=== PATIENT | male | born 1990 | race Caucasian/White ===

== ENCOUNTER 2018-05-11 10:52 | Day surgery (SDC) | payer OTHER ==
[~2018-05-11 10:52] MED LIST: DEXAMETHASONE 2 MG TAB PO; GABAPENTIN 300 MG CAP PO; TRANEXAMIC ACID 1,000 MG in DEXTROSE 5% 100 ML IVPB; traMADol 50 MG TAB PO
[2018-05-11] MEDS ORDERED: LACTATED RINGER'S 1,000 ML IV (13:00)
[2018-05-11] MEDS ORDERED: CEFAZOLIN 1 GM INJ (13:13)
[2018-05-11] MEDS ORDERED: PROPOFOL 20 ML (13:13)
[2018-05-11] MEDS ORDERED: FENTAnyl 50 MCG/ML VIAL ×2 (13:13)
[2018-05-11] MEDS ORDERED: ROPIVACAINE 0.5 % 30 ML VIAL (13:13)
[2018-05-11] MEDS ORDERED: MIDAZOLAM 1 MG/ML 2 ML INJ (13:13)
[2018-05-11] MEDS ORDERED: ROCURONIUM 50 MG INJ (13:13)
[2018-05-11] MEDS ORDERED: OXYCODONE/ACETAMINOPHEN (5/325) TAB PO ×2 (14:00)
[2018-05-11] MEDS ORDERED: EPHEDrine SULFATE 50 MG/5 ML SYG IV (14:00)
[2018-05-11] MEDS ORDERED: HYDROmorphONE 1 MG/5 ML IV SYRINGE IV ×3 (14:00)
[2018-05-11] MEDS ORDERED: MEPERIDINE 25 MG INJ IV (14:00)
[2018-05-11] MEDS ORDERED: DIPHENHYDRAMINE 50 MG INJ IV (14:00)
[2018-05-11] MEDS ORDERED: METOCLOPRAMIDE 10 MG INJ IV (14:00)
[2018-05-11] MEDS ORDERED: hydrALAzine 20 MG INJ IV (14:00)
[2018-05-11] MEDS ORDERED: LABETALOL HCL 20MG INJ IV (14:00)
[2018-05-11] MEDS ORDERED: FENTAnyl 50 MCG/ML VIAL IV ×3 (14:00)
[2018-05-11] MEDS ORDERED: ONDANSETRON 4 MG INJ IV (14:00)
[2018-05-11] MEDS: CEFAZOLIN 2 GM/50 ML (PMX) 50 ML IVPB (14:18)
[2018-05-11] MEDS ORDERED: ONDANSETRON 4 MG INJ (15:13)
[2018-05-11] MEDS ORDERED: DEXAMETHASONE 4 MG/ML 1 ML INJ (15:13)
[2018-05-11] MEDS ORDERED: ACETAMINOPHEN 1000MG/100ML IV 100 ML (15:13)
[2018-05-11] MEDS ORDERED: KETOROLAC 30 MG INJ (15:13)
[2018-05-11] MEDS ORDERED: EPHEDrine SULFATE 50 MG/5 ML SYG (15:13)
[2018-05-11] MEDS ORDERED: METOCLOPRAMIDE 10 MG INJ (15:13)
[2018-05-11] MEDS ORDERED: EPINEPHrine 1 MG INJ (15:23)
[2018-05-11] MEDS ORDERED: SUGAMMADEX SODIUM 200 MG/2 ML VIAL IV (15:25)
[2018-05-11] MEDS ORDERED: ALBUTEROL 0.083% (NEB) 2.5 MG/3 ML AMP HHN (16:30)
[2018-05-11] MEDS: ALBUTEROL 0.083% (NEB) 2.5 MG/3 ML AMP HHN (16:40)
== END 2018-05-11 17:25 | disposition home or self-care (01) ==
LOC: SDS 10:52
DX: S43.401D Unspecified sprain of right shoulder joint, subsequent encounter (principal); X58.XXXD Exposure to other specified factors, subsequent encounter; G58.8 Other specified mononeuropathies; M75.41 Impingement syndrome of right shoulder; M13.811 Other specified arthritis, right shoulder
CPT/HCPCS: 29807; 94664